=== PATIENT | female | born 1940 | race Caucasian/White ===

== ENCOUNTER 2020-08-07 20:57 | Emergency (ER) | payer MEDICARE, OTHER ==
[~2020-08-07 20:57] MED LIST: ACETAMINOPHEN325 MG PO; ACETAMINOPHEN500 MG PO; ADVAIR 250-501 EACH INH; ALBUTEROL0.63 MG/3 INH; ALLOPURINOL100 MG PO; AMOX TR-K CLV1 EAC3 PO; ARTIFICIAL TEAR15 M2 OU; ATIVAN 1MG TABLE1 MG PO; ATIVAN0.5 MG PO; ATORVASTATIN CA80 MG PO; BACTRIM DS TAB1 EACH PO; BACTROBAN OINT22 GM TOP; BISCOLAX10 MG PR; BREO ELLIPTA 11 EACH INH; BROVANA15 MCG/2 M INH; CEFUROXIME500 MG PO; CEPHALEXIN500 MG PO; CETAPHIL CREAM454 GM TOP; CETAPHIL CREAM454 GM TP; CIPRO500 MG PO; CLARITIN10 MG PO; COLACE100 MG PO; COLCHICINE0.6 M1 PO; CYANOCOBAL1000 MCG/1 INJ; CYMBALTA 30 MG30 MG PO; CYMBALTA30 MG PO; CYMBALTA60 MG PO; DAILY VITE1 EACH PO; DIPHENHYDRAMINE25 M1 PO; DULCOLAX10 MG PR; DULERA 100 MCG8.8 GM INH; ELIQUIS 5 MG TAB5 MG PO; EMLA 30 GRAM TUB1 EA TOP; EUCRISA TOP; FLONASE 0.05% N16 GM; FOLIC ACID1 MG PO; HUMALOG 10100 UNITS/ SC; HYDROCORTISONE TOP; HYDROCORTISONE28 GM TP; HYDROXYCHLOROQ200 MG PO; INVANZ 1 GM VIAL1 GM IV; IPRAT-ALBUT 0.5-3 ML INH; LEVAQUIN750 MG PO; LEVEMIR 10100 UNITS/ SQ; LEVEMIR SC; LEVEMIR100 UNIT/1 SC; LEVOTHYROXINE137 MCG PO; LIDOCAINE-PRILO30 GM TOP; LIPITOR20 MG PO; LISINOPRIL5 MG PO; LORAZEPAM0.5 MG PO; LYRICA75 MG PO; MEDROL DOSEPAK 24 MG PO; MELATONIN3 MG PO; METOPROLOL SUCC25 MG PO; METOPROLOL SUCC50 MG PO; MILK OF MA400 MG/5 M PO; MILK OF MAGNESI30 ML PO; MIRALAX17 GM PO; MONTELUKAST SOD10 MG PO; MS CONTIN30 MG PO; MULTI-VITAMIN1 EACH PO; MYCOSTATIN POWD15 GM TOP; MYCOSTATIN100000 UTS PO; MYRBETRIQ50 MG PO; NEURONTIN 300300 MG PO; NEURONTIN300 MG PO; OMNICEF 300 MG300 MG PO; PERCOCET 10-321 EACH PO; PERCOCET 7.5-31 EACH PO; PREDNISONE 20 M20 MG PO; PROAIR HFA8.5 GM INH; PROTONIX40 MG PO; PROVENTIL HFA 61 INH INH; PROZAC20 MG PO; PULMICORT0.5 MG/21 INH; PYRIDIUM200 MG PO; REGLAN5 MG PO; REMEDY CALAZIM113 G1 TP; REQUIP3 MG PO; RESTASIS 0.05%1 EACH OU; ROBITUSSIN DM UD5 ML PO; ROPINIROLE HCL2 MG PO; SANTYL OINT 3030 GM TP; SENNA8.6 MG PO; STOOL SOFTENER250 MG PO; SYNTHROID112 MCG PO; SYNTHROID125 MCG PO; TAMIFLU75 MG PO; TOPROL XL25 MG PO; TORSEMIDE20 MG PO; TROSPIUM CHLORI60 MG PO; VANCOCIN HCL125 MG PO; VANCOMYCIN750 MG/150 IV; VISTARIL25 MG PO; VITAMIN B-121000 MCG IM; VITAMIN D32000 UNI1 PO; XOPENEX HFA15 GM INH; ZANTAC 150 MG150 MG PO; ZANTAC150 MG PO; ZOFRAN ODT 4 MG4 MG PO; ZOFRAN4 MG PO; ZYVOX600 MG PO; [UNRECOGNIZED DRUG - OTHER] TP
[2020-08-07 22:41] LABS: HEMOGLOBIN 10.3 gm/dl (12.3-15.3); RED BLOOD COUNT 3.08 M/UL (4.00-5.10); WHITE BLOOD COUNT 3.8 K/UL (4.5-11.0)
[2020-08-07] MEDS ORDERED: [UNRECOGNIZED DRUG - REMARK] (23:07)
[2020-11-18] MEDS ORDERED: LYRICA75 MG PO (12:14)
[2020-11-26] MEDS ORDERED: PERCOCET 10-321 EACH PO (12:17)
[2020-12-08] MEDS ORDERED: DIABETIC TUSSI118 ML PO (12:01)
[2020-12-15] MEDS ORDERED: DIFLUCAN100 MG PO (12:02)
[2020-12-15] MEDS ORDERED: LASIX20 MG PO (12:10)
[2020-12-19] MEDS ORDERED: ACETAZOLAMIDE250 MG PO (09:19)
[2020-12-19] MEDS ORDERED: BUDESONIDE0.5 MG/2 M NEB (09:19)
[2020-12-19] MEDS ORDERED: FERROUS SULFAT325 M2 PO (09:34)
[2020-12-19] MEDS ORDERED: PERCOCET 10-321 EACH PO (09:37)
== END 2020-08-08 01:15 | disposition home or self-care (01) ==
LOC: ER1 20:57
PROVIDERS: Family Medicine
DX: R09.89 Other specified symptoms and signs involving the circulatory and respiratory systems (principal); E87.5 Hyperkalemia; I13.0 Hypertensive heart and chronic kidney disease with heart failure and stage 1 through stage 4 chronic kidney disease, or unspecified chronic kidney disease; N18.9 Chronic kidney disease, unspecified; I50.9 Heart failure, unspecified; Z88.1 Allergy status to other antibiotic agents; Z88.5 Allergy status to narcotic agent; Z88.8 Allergy status to other drugs, medicaments and biological substances
CPT/HCPCS: 70490; 80053; 85025; 99284

== ENCOUNTER 2020-08-20 23:24 | Inpatient (IN) | payer MEDICARE, OTHER ==
[~2020-08-20] VITALS: Ht 175.3 cm; Wt 152.0 kg
[~2020-08-20 23:24] MED LIST changes: +[UNRECOGNIZED DRUG - REMARK]
[2020-08-21 00:15] LABS: HEMOGLOBIN 12.8 gm/dl (12.3-15.3); RED BLOOD COUNT 3.77 M/UL (4.00-5.10); WHITE BLOOD COUNT 8.8 K/UL (4.5-11.0)
[2020-08-21] MEDS ORDERED: LIPITOR TAB 2020 MG PO (12:40)
[2020-08-21] MEDS ORDERED: NASAL RELIEF30 ML (12:46)
[2020-08-21] MEDS ORDERED: IRON325 M1 PO (12:48)
[2020-08-21] MEDS ORDERED: ATIVAN0.5 MG PO (12:52)
[2020-08-21] MEDS ORDERED: LYRICA75 MG PO (12:53)
[2020-08-21] MEDS ORDERED: PROTONIX40 MG PO (13:02)
[2020-08-21] MEDS ORDERED: TRELEGY ELLIPT1 EACH INH (13:06)
[2020-08-22 04:44] LABS: WHITE BLOOD COUNT 6.6 K/UL (4.5-11.0)
[2020-08-22 05:12] LABS: HEMOGLOBIN 10.1 gm/dl (12.3-15.3); RED BLOOD COUNT 2.98 M/UL (4.00-5.10)
[2020-08-25] MEDS ORDERED: DITROPAN XL 5 MG5 MG PO (12:04)
[2020-08-25] MEDS ORDERED: PERCOCET 10-321 EACH PO (12:45)
[2020-08-25] MEDS ORDERED: INVANZ 1 GM VIAL1 GM IV (12:47)
--- NOTE | 2020-08-25 13:45 | NUR ---
CALLED EMS AND [facility], GAVE REPORT TO KOREY AT THIS TIME , PT WILL BE GOING WITH IV LEFT IN PLACE FOR 3 MORE DAYS OF ANTIBIOTICS
[2020-11-18] MEDS ORDERED: LYRICA75 MG PO (12:14)
[2020-11-26] MEDS ORDERED: PERCOCET 10-321 EACH PO (12:17)
[2020-12-08] MEDS ORDERED: DIABETIC TUSSI118 ML PO (12:01)
[2020-12-15] MEDS ORDERED: DIFLUCAN100 MG PO (12:02)
[2020-12-15] MEDS ORDERED: LASIX20 MG PO (12:10)
[2020-12-19] MEDS ORDERED: ACETAZOLAMIDE250 MG PO (09:19)
[2020-12-19] MEDS ORDERED: BUDESONIDE0.5 MG/2 M NEB (09:19)
[2020-12-19] MEDS ORDERED: FERROUS SULFAT325 M2 PO (09:34)
[2020-12-19] MEDS ORDERED: PERCOCET 10-321 EACH PO (09:37)
== END 2020-08-25 14:50 | DRG 682 ==
LOC: ER1 23:24 → MED SURG 4 08-21 04:15 → CDU 08-21 04:15 → MED SURG 4 08-21 05:14
PROVIDERS: Internal Medicine; Physician Assistant; Physician Assistant Medical; ADMIT Internal Medicine
DX: N17.9 Acute kidney failure, unspecified (principal); G93.41 Metabolic encephalopathy; J69.0 Pneumonitis due to inhalation of food and vomit; N30.00 Acute cystitis without hematuria; E66.2 Morbid (severe) obesity with alveolar hypoventilation; I13.0 Hypertensive heart and chronic kidney disease with heart failure and stage 1 through stage 4 chronic kidney disease, or unspecified chronic kidney disease; I50.32 Chronic diastolic (congestive) heart failure; I48.20 Chronic atrial fibrillation, unspecified; F11.20 Opioid dependence, uncomplicated; Z68.42 Body mass index [BMI] 45.0-49.9, adult; E78.5 Hyperlipidemia, unspecified; I27.20 Pulmonary hypertension, unspecified; Z20.822 Contact with and (suspected) exposure to COVID-19; B96.20 Unspecified Escherichia coli [E. coli] as the cause of diseases classified elsewhere; M10.9 Gout, unspecified; E03.9 Hypothyroidism, unspecified; K74.60 Unspecified cirrhosis of liver; N39.46 Mixed incontinence; E11.22 Type 2 diabetes mellitus with diabetic chronic kidney disease; E87.5 Hyperkalemia; N18.30 Chronic kidney disease, stage 3 unspecified; Z86.16 Personal history of COVID-19; I87.8 Other specified disorders of veins; M06.9 Rheumatoid arthritis, unspecified; F41.9 Anxiety disorder, unspecified; Z96.652 Presence of left artificial knee joint; Z74.01 Bed confinement status; Z79.01 Long term (current) use of anticoagulants; Z79.82 Long term (current) use of aspirin; Z79.899 Other long term (current) drug therapy; Z90.710 Acquired absence of both cervix and uterus; Z87.891 Personal history of nicotine dependence; Z88.1 Allergy status to other antibiotic agents; Z88.5 Allergy status to narcotic agent; Z88.8 Allergy status to other drugs, medicaments and biological substances; Z82.3 Family history of stroke; Z80.2 Family history of malignant neoplasm of other respiratory and intrathoracic organs; Z28.21 Immunization not carried out because of patient refusal
CPT/HCPCS: 36415; 36600; 70450; 71045; 80048; 80053; 81001; 82550; 82553; 82803; 82962; 83605; 83735; 83874; 83880; 84100; 84484; 85025; 85027; 85610; 85652; 85730; 86140; 87040; 87077; 87086; 87186; 92507; 92526; 92610; 93005; 94640; 94664; 94760; 96365; 96375; 99285; J0610; J0696; J1335; J7030; U0002

== ENCOUNTER 2020-09-07 13:45 | Inpatient (IN) | payer MEDICARE, OTHER ==
[~2020-09-07] VITALS: Ht 172.7 cm; Wt 147.9 kg
[~2020-09-07 13:45] MED LIST changes: +DITROPAN XL 5 MG5 MG PO; +IRON325 M1 PO; +LIPITOR TAB 2020 MG PO; +NASAL RELIEF30 ML; +TRELEGY ELLIPT1 EACH INH
[2020-09-07 15:37] LABS: RED BLOOD COUNT 2.66 M/UL (4.00-5.10); WHITE BLOOD COUNT 4.3 K/UL (4.5-11.0)
[2020-09-08 04:41] LABS: HEMOGLOBIN 8.4 gm/dl (12.3-15.3); RED BLOOD COUNT 2.5 M/UL (4.00-5.10); WHITE BLOOD COUNT 3.6 K/UL (4.5-11.0)
[2020-09-08] MEDS ORDERED: ASPIRIN CHEWABL81 MG PO (09:41)
[2020-09-08] MEDS ORDERED: CYMBALTA30 MG PO (12:43)
[2020-09-08] MEDS ORDERED: ATIVAN0.5 MG PO (12:44)
[2020-09-08] MEDS ORDERED: NOVOLOG 10100 UNITS/ SC (12:57)
[2020-09-08] MEDS ORDERED: PERCOCET 10-321 EACH PO (13:00)
[2020-09-08] MEDS ORDERED: MIRALAX17 GM PO (13:07)
[2020-09-08] MEDS ORDERED: ACETAMINOPHEN325 MG PO (13:07)
[2020-09-08] MEDS ORDERED: VITAMIN C 500500 MG PO (13:08)
[2020-09-08] MEDS ORDERED: VOLTAREN100 GM TP ×2 (13:10→14:47)
[2020-09-08] MEDS ORDERED: SENNA-S 8.6-501 EACH PO (13:12)
[2020-09-08] MEDS ORDERED: DULCOLAX5 MG PO (14:21)
[2020-09-08] MEDS ORDERED: MYCOSTATIN100000 UTS PO (14:35)
[2020-09-08] MEDS ORDERED: XOPENEX HFA15 GM INH (14:57)
[2020-09-08] MEDS ORDERED: BENADRYL ITCH28.3 G1 TOP (22:13)
[2020-09-08] MEDS ORDERED: XALATAN OP SOL2.5 ML EYEBOTH (22:22)
[2020-09-09 06:18] LABS: HEMOGLOBIN 7.4 gm/dl (12.3-15.3); WHITE BLOOD COUNT 3.6 K/UL (4.5-11.0)
[2020-09-09 06:23] LABS: RED BLOOD COUNT 2.22 M/UL (4.00-5.10)
[2020-09-11 05:12] LABS: HEMOGLOBIN 8.2 gm/dl (12.3-15.3); RED BLOOD COUNT 2.43 M/UL (4.00-5.10); WHITE BLOOD COUNT 4.4 K/UL (4.5-11.0)
--- NOTE | 2020-09-12 02:52 | NUR ---
AFTER PRN DOSE OF DUCOLAX TABS AND DULCOLAX SUPPOSITORY, PATIENT HAD A MEDIUM TO LARGE SOFT BM. PATIENT STATES RELIEF.
[2020-09-12 05:13] LABS: HEMOGLOBIN 8.2 gm/dl (12.3-15.3); RED BLOOD COUNT 2.47 M/UL (4.00-5.10); WHITE BLOOD COUNT 3.8 K/UL (4.5-11.0)
[2020-09-13 03:31] LABS: HEMOGLOBIN 8.5 gm/dl (12.3-15.3); RED BLOOD COUNT 2.56 M/UL (4.00-5.10); WHITE BLOOD COUNT 4.5 K/UL (4.5-11.0)
[2020-09-13] MEDS ORDERED: ZYVOX600 MG PO (12:53)
--- NOTE | 2020-09-13 19:08 | NUR ---
SEVERAL ATTEMPS WERE MADE TO CALL [facility] TO GIVE REPORT WITH NO SUCCESS. AWAITING EMS FOR TRANSPORT TO [facility].
[2020-11-18] MEDS ORDERED: LYRICA75 MG PO (12:14)
[2020-11-26] MEDS ORDERED: PERCOCET 10-321 EACH PO (12:17)
[2020-12-08] MEDS ORDERED: DIABETIC TUSSI118 ML PO (12:01)
[2020-12-15] MEDS ORDERED: DIFLUCAN100 MG PO (12:02)
[2020-12-15] MEDS ORDERED: LASIX20 MG PO (12:10)
[2020-12-19] MEDS ORDERED: BUDESONIDE0.5 MG/2 M NEB (09:19)
[2020-12-19] MEDS ORDERED: ACETAZOLAMIDE250 MG PO (09:19)
[2020-12-19] MEDS ORDERED: FERROUS SULFAT325 M2 PO (09:34)
[2020-12-19] MEDS ORDERED: PERCOCET 10-321 EACH PO (09:37)
== END 2020-09-13 20:19 | DRG 682 ==
LOC: ER1 13:45 → CDU 18:21 → MED SURG 4 18:21
PROVIDERS: Emergency Medicine; Hospitalist; ADMIT Internal Medicine
DX: N17.9 Acute kidney failure, unspecified (principal); G93.41 Metabolic encephalopathy; N39.0 Urinary tract infection, site not specified; J96.11 Chronic respiratory failure with hypoxia; I50.32 Chronic diastolic (congestive) heart failure; Z16.24 Resistance to multiple antibiotics; I13.0 Hypertensive heart and chronic kidney disease with heart failure and stage 1 through stage 4 chronic kidney disease, or unspecified chronic kidney disease; J44.1 Chronic obstructive pulmonary disease with (acute) exacerbation; Z68.43 Body mass index [BMI] 50.0-59.9, adult; I48.20 Chronic atrial fibrillation, unspecified; Z20.822 Contact with and (suspected) exposure to COVID-19; B95.2 Enterococcus as the cause of diseases classified elsewhere; R53.81 Other malaise; M10.9 Gout, unspecified; F32.9 Major depressive disorder, single episode, unspecified; E03.9 Hypothyroidism, unspecified; G25.81 Restless legs syndrome; M79.661 Pain in right lower leg; N18.30 Chronic kidney disease, stage 3 unspecified; E86.0 Dehydration; K59.09 Other constipation; E87.5 Hyperkalemia; E83.51 Hypocalcemia; E66.01 Morbid (severe) obesity due to excess calories; E11.40 Type 2 diabetes mellitus with diabetic neuropathy, unspecified; I71.2 Thoracic aortic aneurysm, without rupture; H40.10X0 Unspecified open-angle glaucoma, stage unspecified; E53.8 Deficiency of other specified B group vitamins; F41.1 Generalized anxiety disorder; E78.5 Hyperlipidemia, unspecified; K21.9 Gastro-esophageal reflux disease without esophagitis; L89.322 Pressure ulcer of left buttock, stage 2; I25.10 Atherosclerotic heart disease of native coronary artery without angina pectoris; I87.2 Venous insufficiency (chronic) (peripheral); E11.22 Type 2 diabetes mellitus with diabetic chronic kidney disease; Z96.653 Presence of artificial knee joint, bilateral; Z99.81 Dependence on supplemental oxygen; Z88.1 Allergy status to other antibiotic agents; Z88.5 Allergy status to narcotic agent; Z88.8 Allergy status to other drugs, medicaments and biological substances; Z79.82 Long term (current) use of aspirin; Z79.890 Hormone replacement therapy; Z86.16 Personal history of COVID-19; Z79.4 Long term (current) use of insulin; Z79.01 Long term (current) use of anticoagulants; Z79.899 Other long term (current) drug therapy
CPT/HCPCS: 0240U; 36415; 70450; 71045; 80048; 80053; 81001; 82607; 82746; 82962; 83605; 83735; 84100; 84132; 85025; 85027; 85610; 87040; 87077; 87086; 87186; 92610; 93005; 93971; 94640; 94760; 96365; 96366; 96367; 96368; 96372; 96376; 99285; J0610; J0696; J2020; J2405; J2920; J7030; J7040; P9047; U0002

== ENCOUNTER 2020-10-02 22:03 | Inpatient (IN) | payer MEDICARE, OTHER ==
[~2020-10-02] VITALS: Ht 167.6 cm; Wt 147.4 kg
[~2020-10-02 22:03] MED LIST changes: +ASPIRIN CHEWABL81 MG PO; +BENADRYL ITCH28.3 G1 TOP; +DULCOLAX5 MG PO; +NOVOLOG 10100 UNITS/ SC; +SENNA-S 8.6-501 EACH PO; +VITAMIN C 500500 MG PO; +VOLTAREN100 GM TP; +XALATAN OP SOL2.5 ML EYEBOTH
[2020-10-02 22:57] LABS: HEMOGLOBIN 11.9 gm/dl (12.3-15.3); RED BLOOD COUNT 3.6 M/UL (4.00-5.10); WHITE BLOOD COUNT 8.3 K/UL (4.5-11.0)
[2020-10-04 05:03] LABS: HEMOGLOBIN 10.5 gm/dl (12.3-15.3)
[2020-10-04 05:04] LABS: RED BLOOD COUNT 3.16 M/UL (4.00-5.10); WHITE BLOOD COUNT 5.9 K/UL (4.5-11.0)
--- NOTE | 2020-10-07 12:57 | NUR ---
10/07/20 0930 TOLERATING CLEAR LIQUIDS WELL
[2020-10-08] MEDS ORDERED: PERCOCET 10-321 EACH PO (15:19)
[2020-10-08] MEDS ORDERED: ATIVAN0.5 MG PO (15:19)
[2020-10-08] MEDS ORDERED: IRON325 M1 PO (15:19)
[2020-10-08] MEDS ORDERED: LEVOFLOXACIN750 MG PO (15:42)
[2020-10-08] MEDS ORDERED: INVANZ 1 GM VIAL1 GM IM (17:42)
--- NOTE | 2020-10-08 17:47 | NUR ---
10/08/201739 PATIENT ALLERGIC TO [facility] STEVNESON NOTIFIED, EARNEST PARKS RN AT [facility] STATED IT WAS OK THAT THEY COULD DO THE IV FOR FIVE DAYS
[2020-11-18] MEDS ORDERED: LYRICA75 MG PO (12:14)
[2020-11-26] MEDS ORDERED: PERCOCET 10-321 EACH PO (12:17)
[2020-12-08] MEDS ORDERED: DIABETIC TUSSI118 ML PO (12:01)
[2020-12-15] MEDS ORDERED: DIFLUCAN100 MG PO (12:02)
[2020-12-15] MEDS ORDERED: LASIX20 MG PO (12:10)
[2020-12-19] MEDS ORDERED: ACETAZOLAMIDE250 MG PO (09:19)
[2020-12-19] MEDS ORDERED: BUDESONIDE0.5 MG/2 M NEB (09:19)
[2020-12-19] MEDS ORDERED: FERROUS SULFAT325 M2 PO (09:34)
[2020-12-19] MEDS ORDERED: PERCOCET 10-321 EACH PO (09:37)
== END 2020-10-08 18:29 | DRG 388 ==
LOC: ER1 22:03 → CDU 10-03 01:00 → MED SURG 4 10-03 01:00
PROVIDERS: Family Medicine; Internal Medicine; ADMIT Internal Medicine
DX: K56.609 Unspecified intestinal obstruction, unspecified as to partial versus complete obstruction (principal); G93.41 Metabolic encephalopathy; Z68.43 Body mass index [BMI] 50.0-59.9, adult; J96.11 Chronic respiratory failure with hypoxia; N17.9 Acute kidney failure, unspecified; I50.32 Chronic diastolic (congestive) heart failure; E66.2 Morbid (severe) obesity with alveolar hypoventilation; I13.0 Hypertensive heart and chronic kidney disease with heart failure and stage 1 through stage 4 chronic kidney disease, or unspecified chronic kidney disease; N30.01 Acute cystitis with hematuria; B96.5 Pseudomonas (aeruginosa) (mallei) (pseudomallei) as the cause of diseases classified elsewhere; I25.10 Atherosclerotic heart disease of native coronary artery without angina pectoris; J44.9 Chronic obstructive pulmonary disease, unspecified; Z20.822 Contact with and (suspected) exposure to COVID-19; E11.22 Type 2 diabetes mellitus with diabetic chronic kidney disease; N18.30 Chronic kidney disease, stage 3 unspecified; M10.9 Gout, unspecified; F41.9 Anxiety disorder, unspecified; F32.9 Major depressive disorder, single episode, unspecified; I48.91 Unspecified atrial fibrillation; M06.9 Rheumatoid arthritis, unspecified; E03.9 Hypothyroidism, unspecified; I27.20 Pulmonary hypertension, unspecified; G89.4 Chronic pain syndrome; E78.5 Hyperlipidemia, unspecified; Z96.653 Presence of artificial knee joint, bilateral; K42.9 Umbilical hernia without obstruction or gangrene; K57.90 Diverticulosis of intestine, part unspecified, without perforation or abscess without bleeding; E87.5 Hyperkalemia; E86.0 Dehydration; K74.60 Unspecified cirrhosis of liver; R80.9 Proteinuria, unspecified; D75.89 Other specified diseases of blood and blood-forming organs; I87.8 Other specified disorders of veins; Z90.710 Acquired absence of both cervix and uterus; Z74.01 Bed confinement status; Z79.4 Long term (current) use of insulin; Z98.890 Other specified postprocedural states; Z88.8 Allergy status to other drugs, medicaments and biological substances; Z87.891 Personal history of nicotine dependence
CPT/HCPCS: 0240U; 36415; 36600; 71250; 80048; 80053; 81001; 82803; 82962; 83605; 83690; 85025; 85610; 87040; 87077; 87086; 87186; 94640; 94664; 94760; 96374; 96375; 96376; 99285; C9113; J1335; J1650; J2185; J2270; J2405; J7030; J7040

== ENCOUNTER 2020-11-21 12:00 | Inpatient (IN) | payer MEDICARE, OTHER ==
[~2020-11-21] VITALS: Ht 177.8 cm; Wt 146.7 kg
[~2020-11-21 12:00] MED LIST changes: +INVANZ 1 GM VIAL1 GM IM; +LEVOFLOXACIN750 MG PO
[2020-11-21] MEDS ORDERED: CETAPHIL CREAM454 GM TOP (12:43)
[2020-11-21] MEDS ORDERED: IPRAT-ALBUT 0.5-3 ML INH (12:49)
[2020-11-21 13:18] LABS: HEMOGLOBIN 8.1 gm/dl (12.3-15.3); RED BLOOD COUNT 2.5 M/UL (4.00-5.10); WHITE BLOOD COUNT 4.6 K/UL (4.5-11.0)
[2020-11-21 13:53] LABS: BUN/CREATININE RATIO 24 (0-10)
[2020-11-21] MEDS ORDERED: VITAMIN D350 MC3 PO (16:35)
[2020-11-21] MEDS ORDERED: LAXATIVE SUPPOS10 MG PR (20:03)
[2020-11-21] MEDS ORDERED: [UNRECOGNIZED DRUG - OTHER] TOP (20:30)
[2020-11-21] MEDS ORDERED: CETAPHIL TOP (20:30)
[2020-11-22 00:56] LABS: HEMOGLOBIN 8.1 gm/dl (12.3-15.3); RED BLOOD COUNT 2.52 M/UL (4.00-5.10); WHITE BLOOD COUNT 5.3 K/UL (4.5-11.0)
[2020-11-22 02:02] LABS: BUN/CREATININE RATIO 26 (0-10)
[2020-11-23 08:04] LABS: RED BLOOD COUNT 2.55 M/UL (4.00-5.10); WHITE BLOOD COUNT 5.1 K/UL (4.5-11.0)
[2020-11-24 03:21] LABS: HEMOGLOBIN 7.9 gm/dl (12.3-15.3); RED BLOOD COUNT 2.46 M/UL (4.00-5.10); WHITE BLOOD COUNT 4.3 K/UL (4.5-11.0)
[2020-11-24] MEDS ORDERED: PERCOCET 10-321 EACH PO (10:57)
[2020-11-24] MEDS ORDERED: CEFUROXIME500 MG PO (10:57)
--- NOTE | 2020-11-24 15:21 | NUR ---
11/24/20 1520 [facility] EMS NOTIFIED OF NEED TO TAKE PATIENT BACK TO [facility]
[2020-11-26] MEDS ORDERED: PERCOCET 10-321 EACH PO (12:17)
[2020-12-08] MEDS ORDERED: DIABETIC TUSSI118 ML PO (12:01)
[2020-12-15] MEDS ORDERED: DIFLUCAN100 MG PO (12:02)
[2020-12-15] MEDS ORDERED: LASIX20 MG PO (12:10)
[2020-12-19] MEDS ORDERED: ACETAZOLAMIDE250 MG PO (09:19)
[2020-12-19] MEDS ORDERED: BUDESONIDE0.5 MG/2 M NEB (09:19)
[2020-12-19] MEDS ORDERED: FERROUS SULFAT325 M2 PO (09:34)
[2020-12-19] MEDS ORDERED: PERCOCET 10-321 EACH PO (09:37)
== END 2020-11-24 16:45 | DRG 682 ==
LOC: ER1 12:00 → PROG CARE 15:11 → CDU 15:11 → PROG CARE 19:45
PROVIDERS: Emergency Medicine; Physician Assistant; ADMIT Internal Medicine
PROC: 02HV33Z Insertion of Infusion Device into Superior Vena Cava, Percutaneous Approach (ICD-10-PCS; principal; 2020-11-21)
DX: N17.9 Acute kidney failure, unspecified (principal); J96.21 Acute and chronic respiratory failure with hypoxia; J96.22 Acute and chronic respiratory failure with hypercapnia; G93.49 Other encephalopathy; I48.20 Chronic atrial fibrillation, unspecified; I13.0 Hypertensive heart and chronic kidney disease with heart failure and stage 1 through stage 4 chronic kidney disease, or unspecified chronic kidney disease; I50.32 Chronic diastolic (congestive) heart failure; E66.2 Morbid (severe) obesity with alveolar hypoventilation; N30.00 Acute cystitis without hematuria; Z16.12 Extended spectrum beta lactamase (ESBL) resistance; B96.20 Unspecified Escherichia coli [E. coli] as the cause of diseases classified elsewhere; N18.30 Chronic kidney disease, stage 3 unspecified; E87.5 Hyperkalemia; E11.22 Type 2 diabetes mellitus with diabetic chronic kidney disease; E03.9 Hypothyroidism, unspecified; D53.9 Nutritional anemia, unspecified; Z96.653 Presence of artificial knee joint, bilateral; F32.9 Major depressive disorder, single episode, unspecified; Z20.822 Contact with and (suspected) exposure to COVID-19; I27.20 Pulmonary hypertension, unspecified; E78.5 Hyperlipidemia, unspecified; G89.4 Chronic pain syndrome; Z90.710 Acquired absence of both cervix and uterus; Z88.6 Allergy status to analgesic agent; Z88.8 Allergy status to other drugs, medicaments and biological substances; Z80.8 Family history of malignant neoplasm of other organs or systems; Z90.49 Acquired absence of other specified parts of digestive tract; Z82.3 Family history of stroke; Z79.4 Long term (current) use of insulin; Z88.1 Allergy status to other antibiotic agents; Z68.30 Body mass index [BMI] 30.0-30.9, adult
CPT/HCPCS: 0240U; 36415; 36556; 36600; 51702; 70450; 71045; 80048; 80053; 81001; 82550; 82553; 82803; 82962; 83605; 83690; 83880; 84132; 84484; 85025; 85610; 85730; 86850; 86900; 86901; 87040; 87077; 87086; 87186; 93005; 94640; 94660; 94664; 94760; 96374; 99285; J0696; J1335; J7030

== ENCOUNTER 2020-12-14 11:11 | Emergency (ER) | payer MEDICARE, OTHER ==
[~2020-12-14 11:11] MED LIST changes: +CETAPHIL TOP; +DIABETIC TUSSI118 ML PO; +LAXATIVE SUPPOS10 MG PR; +VITAMIN D350 MC3 PO; +[UNRECOGNIZED DRUG - OTHER] TOP
[2020-12-14 13:10] LABS: HEMOGLOBIN 7.6 gm/dl (12.3-15.3); RED BLOOD COUNT 2.37 M/UL (4.00-5.10)
[2020-12-14 13:40] LABS: BUN/CREATININE RATIO 17 (0-10)
[2020-12-14] MEDS ORDERED: OMNICEF 300 MG300 MG PO (16:41)
[2020-12-15] MEDS ORDERED: DIFLUCAN100 MG PO (12:02)
[2020-12-15] MEDS ORDERED: LASIX20 MG PO (12:10)
[2020-12-19] MEDS ORDERED: BUDESONIDE0.5 MG/2 M NEB (09:19)
[2020-12-19] MEDS ORDERED: ACETAZOLAMIDE250 MG PO (09:19)
[2020-12-19] MEDS ORDERED: FERROUS SULFAT325 M2 PO (09:34)
[2020-12-19] MEDS ORDERED: PERCOCET 10-321 EACH PO (09:37)
== END 2020-12-14 19:46 ==
LOC: ER1 11:11
PROVIDERS: Family Medicine
DX: J96.12 Chronic respiratory failure with hypercapnia (principal); N39.0 Urinary tract infection, site not specified; F41.9 Anxiety disorder, unspecified; I50.32 Chronic diastolic (congestive) heart failure; N18.9 Chronic kidney disease, unspecified; D63.1 Anemia in chronic kidney disease; E87.5 Hyperkalemia; E66.01 Morbid (severe) obesity due to excess calories; Z88.1 Allergy status to other antibiotic agents
CPT/HCPCS: 36600; 71045; 80053; 81001; 82550; 82553; 82803; 83605; 83874; 83880; 84484; 85025; 85610; 93005; 94664; 96365; 99285; J0696

== ENCOUNTER 2020-12-17 06:58 | Inpatient (IN) | payer MEDICARE, OTHER ==
[~2020-12-17] VITALS: Ht 157.5 cm; Wt 147.4 kg
[~2020-12-17 06:58] MED LIST changes: +DIFLUCAN100 MG PO; +LASIX20 MG PO
[2020-12-17 07:28] LABS: HEMOGLOBIN 8.1 gm/dl (12.3-15.3); RED BLOOD COUNT 2.55 M/UL (4.00-5.10); WHITE BLOOD COUNT 3.9 K/UL (4.5-11.0)
[2020-12-17 08:01] LABS: BUN/CREATININE RATIO 13 (0-10)
[2020-12-17] MEDS ORDERED: FERROUS SULFAT325 MG PO (12:08)
[2020-12-17] MEDS ORDERED: ESTRACE42.5 GM PV (20:49)
[2020-12-18 03:08] LABS: HEMOGLOBIN 7.9 gm/dl (12.3-15.3); RED BLOOD COUNT 2.46 M/UL (4.00-5.10); WHITE BLOOD COUNT 3.4 K/UL (4.5-11.0)
[2020-12-19 05:09] LABS: HEMOGLOBIN 7.6 gm/dl (12.3-15.3); RED BLOOD COUNT 2.34 M/UL (4.00-5.10); WHITE BLOOD COUNT 3.6 K/UL (4.5-11.0)
[2020-12-19] MEDS ORDERED: BUDESONIDE0.5 MG/2 M NEB (09:19)
[2020-12-19] MEDS ORDERED: ACETAZOLAMIDE250 MG PO (09:19)
[2020-12-19] MEDS ORDERED: FERROUS SULFAT325 M2 PO (09:34)
[2020-12-19] MEDS ORDERED: PERCOCET 10-321 EACH PO (09:37)
== END 2020-12-19 16:30 | DRG 291 ==
LOC: ER1 06:58 → PROG CARE 11:32 → CDU 11:32 → PROG CARE 13:06
PROVIDERS: Emergency Medicine; Physician Assistant Medical; ADMIT Internal Medicine
PROC: 5A09357 Assistance with Respiratory Ventilation, Less than 24 Consecutive Hours, Continuous Positive Airway Pressure (ICD-10-PCS; principal; 2020-12-17)
DX: I13.0 Hypertensive heart and chronic kidney disease with heart failure and stage 1 through stage 4 chronic kidney disease, or unspecified chronic kidney disease (principal); J96.21 Acute and chronic respiratory failure with hypoxia; R53.2 Functional quadriplegia; I50.33 Acute on chronic diastolic (congestive) heart failure; J96.22 Acute and chronic respiratory failure with hypercapnia; J98.11 Atelectasis; I48.20 Chronic atrial fibrillation, unspecified; N30.00 Acute cystitis without hematuria; E66.2 Morbid (severe) obesity with alveolar hypoventilation; Z68.43 Body mass index [BMI] 50.0-59.9, adult; Z20.822 Contact with and (suspected) exposure to COVID-19; I87.8 Other specified disorders of veins; I48.0 Paroxysmal atrial fibrillation; N18.30 Chronic kidney disease, stage 3 unspecified; E11.22 Type 2 diabetes mellitus with diabetic chronic kidney disease; D63.1 Anemia in chronic kidney disease; D50.9 Iron deficiency anemia, unspecified; E11.51 Type 2 diabetes mellitus with diabetic peripheral angiopathy without gangrene; Z96.653 Presence of artificial knee joint, bilateral; D69.6 Thrombocytopenia, unspecified; R32 Unspecified urinary incontinence; G89.4 Chronic pain syndrome; M06.9 Rheumatoid arthritis, unspecified; E78.00 Pure hypercholesterolemia, unspecified; E03.9 Hypothyroidism, unspecified; I27.20 Pulmonary hypertension, unspecified; E11.9 Type 2 diabetes mellitus without complications; Z87.440 Personal history of urinary (tract) infections; Z79.82 Long term (current) use of aspirin; Z79.01 Long term (current) use of anticoagulants; Z79.4 Long term (current) use of insulin; Z86.16 Personal history of COVID-19; Z90.49 Acquired absence of other specified parts of digestive tract; Z90.710 Acquired absence of both cervix and uterus; Z88.1 Allergy status to other antibiotic agents; Z88.5 Allergy status to narcotic agent; Z88.8 Allergy status to other drugs, medicaments and biological substances; Z74.01 Bed confinement status; Z87.891 Personal history of nicotine dependence; Z81.1 Family history of alcohol abuse and dependence; Z80.0 Family history of malignant neoplasm of digestive organs; Z82.3 Family history of stroke
CPT/HCPCS: 36415; 36600; 71045; 80048; 80053; 81001; 82550; 82553; 82803; 82962; 83540; 83550; 83605; 83735; 83874; 83880; 84132; 84439; 84443; 84484; 85025; 85027; 85610; 93005; 94640; 94660; 94664; 94760; 97161; 99285; J0696; J1120; J1205; J1335; U0002

== ENCOUNTER 2020-12-29 15:44 | Emergency (ER) | payer MEDICARE, OTHER ==
[~2020-12-29 15:44] MED LIST changes: +ACETAZOLAMIDE250 MG PO; +BUDESONIDE0.5 MG/2 M NEB; +ESTRACE42.5 GM PV; +FERROUS SULFAT325 M2 PO; +FERROUS SULFAT325 MG PO
[2020-12-29 16:56] LABS: HEMOGLOBIN 8.7 gm/dl (12.3-15.3); RED BLOOD COUNT 2.65 M/UL (4.00-5.10); WHITE BLOOD COUNT 5.9 K/UL (4.5-11.0)
[2020-12-29] MEDS ORDERED: OMNICEF 300 MG300 MG PO (19:12)
== END 2020-12-29 20:50 | disposition home or self-care (01) ==
LOC: ER1 15:44
PROVIDERS: Emergency Medicine
DX: N39.0 Urinary tract infection, site not specified (principal); I48.91 Unspecified atrial fibrillation; I11.0 Hypertensive heart disease with heart failure; I50.9 Heart failure, unspecified; E78.5 Hyperlipidemia, unspecified; Z20.822 Contact with and (suspected) exposure to COVID-19; E11.9 Type 2 diabetes mellitus without complications; Z90.710 Acquired absence of both cervix and uterus; Z88.1 Allergy status to other antibiotic agents; Z88.8 Allergy status to other drugs, medicaments and biological substances
CPT/HCPCS: 0240U; 51701; 71045; 80053; 81001; 82550; 82553; 83605; 83874; 83880; 84484; 85025; 85610; 85730; 87040; 87086; 93005; 96374; 99285; J0696

== ENCOUNTER 2021-01-31 10:54 | Emergency (ER) | payer MEDICARE, OTHER ==
[~2021-01-31 10:54] MED LIST changes: -LIPITOR TAB 2020 MG PO; -MELATONIN3 MG PO; -REQUIP3 MG PO; -VITAMIN D350 MC3 PO
== END 2021-01-31 14:04 | disposition home or self-care (01) ==
LOC: ER1 10:54
DX: L76.22 Postprocedural hemorrhage of skin and subcutaneous tissue following other procedure (principal); I48.91 Unspecified atrial fibrillation; I12.9 Hypertensive chronic kidney disease with stage 1 through stage 4 chronic kidney disease, or unspecified chronic kidney disease; E11.22 Type 2 diabetes mellitus with diabetic chronic kidney disease
CPT/HCPCS: 99283

== ENCOUNTER 2021-04-25 21:47 | Inpatient (IN) | payer MEDICARE, OTHER ==
[~2021-04-25] VITALS: Ht 172.7 cm; Wt 140.2 kg
[2021-04-26 00:14] LABS: HEMOGLOBIN 9.9 gm/dl (12.3-15.3); RED BLOOD COUNT 3.07 M/UL (4.00-5.10); WHITE BLOOD COUNT 5.7 K/UL (4.5-11.0)
[2021-04-26] MEDS ORDERED: LIPITOR TAB 2020 MG PO (12:40)
[2021-04-26] MEDS ORDERED: CYMBALTA20 MG PO (12:43)
[2021-04-26] MEDS ORDERED: ROPINIROLE HCL3 MG PO (13:11)
[2021-04-26] MEDS ORDERED: PROAIR DIGIHAL90 MCG INH (14:48)
[2021-04-26] MEDS ORDERED: [UNRECOGNIZED DRUG - OTHER] TOP (14:51)
[2021-04-26] MEDS ORDERED: BENADRYL ITCH28.3 G1 TOP (14:52)
[2021-04-26] MEDS ORDERED: BISACODYL10 MG PR (14:54)
[2021-04-26] MEDS ORDERED: HYDROCODON-ACE1 EAC4 PO (14:54)
[2021-04-26] MEDS ORDERED: XOPENEX HFA15 GM INH (14:56)
[2021-04-26] MEDS ORDERED: DULCOLAX400 MG/5 M PO (14:58)
[2021-04-26] MEDS ORDERED: MIRALAX17 GM PO (15:02)
[2021-04-26] MEDS ORDERED: MYCOSTATIN100000 UTS PO (15:03)
[2021-04-26] MEDS ORDERED: MELATONIN3 MG PO (16:11)
[2021-04-26] MEDS ORDERED: VITAMIN D350 MC3 PO (16:35)
[2021-04-28 06:23] LABS: HEMOGLOBIN 8.4 gm/dl (12.3-15.3)
[2021-04-28 06:24] LABS: RED BLOOD COUNT 2.64 M/UL (4.00-5.10); WHITE BLOOD COUNT 2.7 K/UL (4.5-11.0)
[2021-04-29 06:29] LABS: RED BLOOD COUNT 2.79 M/UL (4.00-5.10)
[2021-04-29 06:30] LABS: WHITE BLOOD COUNT 3.9 K/UL (4.5-11.0)
[2021-04-30 05:59] LABS: HEMOGLOBIN 9.3 gm/dl (12.3-15.3); RED BLOOD COUNT 2.95 M/UL (4.00-5.10); WHITE BLOOD COUNT 4.3 K/UL (4.5-11.0)
[2021-04-30] MEDS ORDERED: OMNICEF 300 MG300 MG PO (14:25)
[2021-04-30] MEDS ORDERED: LYRICA75 MG PO (16:39)
[2021-04-30] MEDS ORDERED: HYDROCODON-ACE1 EAC4 PO (16:39)
[2021-04-30] MEDS ORDERED: LASIX TAB 20 MG20 MG PO (16:39)
== END 2021-04-30 18:00 | disposition short-term general hospital (02) | DRG 189 ==
LOC: ER1 21:47 → CDU 04-26 02:05 → MED SURG 4 04-26 02:05
PROVIDERS: Family Medicine; Internal Medicine; ADMIT Internal Medicine
PROC: 5A09357 Assistance with Respiratory Ventilation, Less than 24 Consecutive Hours, Continuous Positive Airway Pressure (ICD-10-PCS; 2021-04-26)
PROC: B24BZZ4 Ultrasonography of Heart with Aorta, Transesophageal (ICD-10-PCS; principal; 2021-04-27)
DX: J96.22 Acute and chronic respiratory failure with hypercapnia (principal); I50.33 Acute on chronic diastolic (congestive) heart failure; Z20.822 Contact with and (suspected) exposure to COVID-19; I21.A1 Myocardial infarction type 2; N30.00 Acute cystitis without hematuria; N17.9 Acute kidney failure, unspecified; J44.1 Chronic obstructive pulmonary disease with (acute) exacerbation; I50.32 Chronic diastolic (congestive) heart failure; I48.20 Chronic atrial fibrillation, unspecified; E66.2 Morbid (severe) obesity with alveolar hypoventilation; I13.0 Hypertensive heart and chronic kidney disease with heart failure and stage 1 through stage 4 chronic kidney disease, or unspecified chronic kidney disease; N18.4 Chronic kidney disease, stage 4 (severe); Z68.42 Body mass index [BMI] 45.0-49.9, adult; I87.8 Other specified disorders of veins; I27.20 Pulmonary hypertension, unspecified; E03.9 Hypothyroidism, unspecified; E87.6 Hypokalemia; K59.00 Constipation, unspecified; E11.22 Type 2 diabetes mellitus with diabetic chronic kidney disease; Z96.653 Presence of artificial knee joint, bilateral; G89.4 Chronic pain syndrome; M10.9 Gout, unspecified; E78.5 Hyperlipidemia, unspecified; Z91.14 Patient's other noncompliance with medication regimen; Z74.01 Bed confinement status; Z79.01 Long term (current) use of anticoagulants; Z86.16 Personal history of COVID-19; Z87.440 Personal history of urinary (tract) infections; Z90.49 Acquired absence of other specified parts of digestive tract; Z79.82 Long term (current) use of aspirin; Z79.899 Other long term (current) drug therapy; Z87.01 Personal history of pneumonia (recurrent); Z90.710 Acquired absence of both cervix and uterus; Z96.82 Presence of neurostimulator; Z80.0 Family history of malignant neoplasm of digestive organs; Z82.3 Family history of stroke
CPT/HCPCS: ECHO; 36415; 36600; 70450; 71045; 80048; 80053; 80307; 81001; 82140; 82550; 82553; 82565; 82803; 82962; 83036; 83605; 83874; 84484; 85025; 85027; 86140; 87077; 87086; 87186; 93005; 93306; 93926; 94640; 94660; 94664; 94760; 97162; 99285; J0696; J1940; J2920; J7030; U0002

== ENCOUNTER 2021-09-26 09:06 | Inpatient (IN) | payer MEDICARE, OTHER ==
[~2021-09-26] VITALS: Ht 177.8 cm; Wt 141.0 kg
[~2021-09-26 09:06] MED LIST changes: +BISACODYL10 MG PR; +DULCOLAX400 MG/5 M PO; +HYDROCODON-ACE1 EAC4 PO; +LASIX TAB 20 MG20 MG PO; +LIPITOR TAB 2020 MG PO; +MELATONIN3 MG PO; +ROPINIROLE HCL4 MG PO; +VITAMIN D350 MC3 PO; +[UNRECOGNIZED DRUG - OTHER] TOP
[2021-09-26 10:06] LABS: HEMOGLOBIN 10.8 gm/dl (12.3-15.3); RED BLOOD COUNT 3.42 M/UL (4.00-5.10); WHITE BLOOD COUNT 9.3 K/UL (4.5-11.0)
[2021-09-26] MEDS ORDERED: HYDROCODON-ACE1 EAC4 PO (12:58)
[2021-09-26] MEDS ORDERED: OXYBUTYNIN CHLOR5 MG PO (12:59)
[2021-09-26] MEDS ORDERED: LYRICA75 MG PO (13:00)
[2021-09-26] MEDS ORDERED: ZINC OXIDE57 GM TOP (13:01)
[2021-09-26] MEDS ORDERED: FLONASE 0.05% N16 GM (13:02)
[2021-09-26] MEDS ORDERED: OMEPRAZOLE20 MG PO (13:02)
[2021-09-26] MEDS ORDERED: QUETIAPINE FUMA50 MG PO (13:02)
[2021-09-26] MEDS ORDERED: VOLTAREN ARTHRI20 GM TOP (13:03)
[2021-09-27 03:49] LABS: HEMOGLOBIN 9.2 gm/dl (12.3-15.3); WHITE BLOOD COUNT 7.4 K/UL (4.5-11.0)
[2021-09-27 04:01] LABS: RED BLOOD COUNT 2.95 M/UL (4.00-5.10)
[2021-09-28 03:02] LABS: HEMOGLOBIN 10.2 gm/dl (12.3-15.3); RED BLOOD COUNT 3.23 M/UL (4.00-5.10); WHITE BLOOD COUNT 7.4 K/UL (4.5-11.0)
[2021-09-28] MEDS ORDERED: ROCEPHIN 1 GM AD1 GM IV (12:11)
--- NOTE | 2021-09-28 14:27 | NUR ---
CALLED EMS [facility] AND THEY STATES WILL BE HERE IN HOUR OR SO TO LEAD DATA ARCHITECT PATIENT
== END 2021-09-28 18:00 | DRG 690 ==
LOC: ER1 09:06 → CDU 12:26 → M/S 12:58
PROVIDERS: Physician Assistant; ADMIT Internal Medicine
DX: N39.0 Urinary tract infection, site not specified (principal); Z16.21 Resistance to vancomycin; Z16.12 Extended spectrum beta lactamase (ESBL) resistance; Z20.822 Contact with and (suspected) exposure to COVID-19; I50.32 Chronic diastolic (congestive) heart failure; I48.20 Chronic atrial fibrillation, unspecified; I13.0 Hypertensive heart and chronic kidney disease with heart failure and stage 1 through stage 4 chronic kidney disease, or unspecified chronic kidney disease; Z68.41 Body mass index [BMI] 40.0-44.9, adult; B96.20 Unspecified Escherichia coli [E. coli] as the cause of diseases classified elsewhere; D63.1 Anemia in chronic kidney disease; I87.8 Other specified disorders of veins; G89.4 Chronic pain syndrome; E03.9 Hypothyroidism, unspecified; E78.5 Hyperlipidemia, unspecified; Z96.651 Presence of right artificial knee joint; Z96.653 Presence of artificial knee joint, bilateral; K42.9 Umbilical hernia without obstruction or gangrene; M10.9 Gout, unspecified; N18.30 Chronic kidney disease, stage 3 unspecified; E66.01 Morbid (severe) obesity due to excess calories; E11.22 Type 2 diabetes mellitus with diabetic chronic kidney disease; M06.9 Rheumatoid arthritis, unspecified; Z87.440 Personal history of urinary (tract) infections; Z79.4 Long term (current) use of insulin; Z87.19 Personal history of other diseases of the digestive system; Z79.01 Long term (current) use of anticoagulants; Z79.82 Long term (current) use of aspirin; Z90.710 Acquired absence of both cervix and uterus; Z98.890 Other specified postprocedural states; Z90.49 Acquired absence of other specified parts of digestive tract; Z88.5 Allergy status to narcotic agent; Z88.1 Allergy status to other antibiotic agents; Z88.6 Allergy status to analgesic agent; Z88.8 Allergy status to other drugs, medicaments and biological substances; Z74.01 Bed confinement status; Z87.891 Personal history of nicotine dependence; Z80.0 Family history of malignant neoplasm of digestive organs
CPT/HCPCS: 0240U; 36415; 51701; 80048; 80053; 81001; 82962; 83605; 83690; 85025; 87040; 87077; 87086; 87186; 94760; 96374; 96375; 99285; J0696; J1335; J2405

== ENCOUNTER 2021-10-02 22:35 | Inpatient (IN) | payer MEDICARE, OTHER ==
[~2021-10-02] VITALS: Ht 170.2 cm; Wt 142.9 kg
[~2021-10-02 22:35] MED LIST changes: +OMEPRAZOLE20 MG PO; +OXYBUTYNIN CHLOR5 MG PO; +QUETIAPINE FUMA50 MG PO; +ROCEPHIN 1 GM AD1 GM IV; +ZINC OXIDE57 GM TOP
[2021-10-02 23:37] LABS: HEMOGLOBIN 9.5 gm/dl (12.3-15.3); RED BLOOD COUNT 3.08 M/UL (4.00-5.10); WHITE BLOOD COUNT 5.7 K/UL (4.5-11.0)
[2021-10-03 00:07] LABS: BUN/CREATININE RATIO 29 (0-10)
[2021-10-03 07:24] LABS: HEMOGLOBIN 9.4 gm/dl (12.3-15.3); RED BLOOD COUNT 2.97 M/UL (4.00-5.10); WHITE BLOOD COUNT 5.1 K/UL (4.5-11.0)
[2021-10-03] MEDS ORDERED: DULCOLAX5 MG PO (10:25)
[2021-10-03] MEDS ORDERED: GUAIFENESIN400 MG PO (10:26)
[2021-10-03] MEDS ORDERED: ZOFRAN ODT 4 MG4 MG PO (10:33)
[2021-10-03] MEDS ORDERED: PYRIDIUM100 MG PO (10:35)
[2021-10-03] MEDS ORDERED: VOLTAREN ARTHRI20 GM TOP (13:03)
[2021-10-03] MEDS ORDERED: PROAIR HFA8.5 GM INH (14:48)
[2021-10-04 06:13] LABS: HEMOGLOBIN 8.4 gm/dl (12.3-15.3); RED BLOOD COUNT 2.7 M/UL (4.00-5.10); WHITE BLOOD COUNT 4.5 K/UL (4.5-11.0)
[2021-10-05 06:02] LABS: HEMOGLOBIN 8.6 gm/dl (12.3-15.3); RED BLOOD COUNT 2.78 M/UL (4.00-5.10); WHITE BLOOD COUNT 4.1 K/UL (4.5-11.0)
[2021-10-06 03:12] LABS: BUN/CREATININE RATIO 30 (0-10)
[2021-10-06 03:34] LABS: HEMOGLOBIN 9.5 gm/dl (12.3-15.3); RED BLOOD COUNT 3.06 M/UL (4.00-5.10); WHITE BLOOD COUNT 5.2 K/UL (4.5-11.0)
== END 2021-10-06 14:25 | DRG 291 ==
LOC: ER1 22:35 → CDU 10-03 05:17 → M/S 10-03 05:17
PROVIDERS: Internal Medicine; Student in an Organized Health Care Education/Training Program; ADMIT Internal Medicine
PROC: 3E0433Z Introduction of Anti-inflammatory into Central Vein, Percutaneous Approach (ICD-10-PCS; principal; 2021-10-02)
PROC: B24BZZZ Ultrasonography of Heart with Aorta (ICD-10-PCS; 2021-10-04)
DX: I13.0 Hypertensive heart and chronic kidney disease with heart failure and stage 1 through stage 4 chronic kidney disease, or unspecified chronic kidney disease (principal); I50.33 Acute on chronic diastolic (congestive) heart failure; E87.3 Alkalosis; N39.0 Urinary tract infection, site not specified; D61.818 Other pancytopenia; N17.9 Acute kidney failure, unspecified; J96.11 Chronic respiratory failure with hypoxia; I48.20 Chronic atrial fibrillation, unspecified; Z68.42 Body mass index [BMI] 45.0-49.9, adult; Z16.21 Resistance to vancomycin; Z16.12 Extended spectrum beta lactamase (ESBL) resistance; E83.42 Hypomagnesemia; M06.9 Rheumatoid arthritis, unspecified; E03.9 Hypothyroidism, unspecified; N18.30 Chronic kidney disease, stage 3 unspecified; E11.22 Type 2 diabetes mellitus with diabetic chronic kidney disease; I87.8 Other specified disorders of veins; K59.00 Constipation, unspecified; G47.33 Obstructive sleep apnea (adult) (pediatric); I27.20 Pulmonary hypertension, unspecified; E78.5 Hyperlipidemia, unspecified; G89.4 Chronic pain syndrome; M10.9 Gout, unspecified; I48.0 Paroxysmal atrial fibrillation; E66.01 Morbid (severe) obesity due to excess calories; Z96.653 Presence of artificial knee joint, bilateral; R53.81 Other malaise; D63.1 Anemia in chronic kidney disease; I08.1 Rheumatic disorders of both mitral and tricuspid valves; E87.5 Hyperkalemia; Z79.01 Long term (current) use of anticoagulants; Z74.01 Bed confinement status; Z87.19 Personal history of other diseases of the digestive system; Z87.440 Personal history of urinary (tract) infections; Z96.82 Presence of neurostimulator; Z90.710 Acquired absence of both cervix and uterus; Z98.890 Other specified postprocedural states; Z90.49 Acquired absence of other specified parts of digestive tract; Z88.1 Allergy status to other antibiotic agents; Z88.5 Allergy status to narcotic agent; Z88.8 Allergy status to other drugs, medicaments and biological substances; Z87.891 Personal history of nicotine dependence; Z82.3 Family history of stroke; Z80.0 Family history of malignant neoplasm of digestive organs
CPT/HCPCS: ECHO; 36415; 51702; 71045; 76706; 80048; 80053; 81001; 82550; 82553; 82607; 82746; 82962; 83540; 83550; 83605; 83735; 83880; 84100; 84484; 85025; 85027; 87040; 87086; 93005; 93306; 94640; 94664; 94760; 96374; 96375; 97161; 97167; 99285; J0692; J0696; J1100; J1756; J1940; U0002

== ENCOUNTER 2021-12-17 09:53 | Inpatient (IN) | payer MEDICARE, OTHER ==
[~2021-12-17] VITALS: Ht 177.8 cm; Wt 155.6 kg
[~2021-12-17 09:53] MED LIST changes: +GUAIFENESIN400 MG PO; +LEVEMIR100 UNIT/1 SQ; -NOVOLOG 10100 UNITS/ SC; +NOVOLOG 10100 UNITS/ SQ; +PYRIDIUM100 MG PO; +VOLTAREN ARTHRI20 GM TOP; -XALATAN OP SOL2.5 ML EYEBOTH; +XALATAN OP SOL2.5 ML OU
[2021-12-17 11:46] LABS: HEMOGLOBIN 9.5 gm/dl (12.3-15.3); RED BLOOD COUNT 2.95 M/UL (4.00-5.10); WHITE BLOOD COUNT 4.5 K/UL (4.5-11.0)
[2021-12-17] MEDS ORDERED: ELIQUIS5 MG PO (14:38)
[2021-12-17] MEDS ORDERED: MYCOSTATIN100000 UTS PO (14:46)
[2021-12-17] MEDS ORDERED: IPRAT-ALBUT 0.5-3 ML INH (14:47)
[2021-12-17] MEDS ORDERED: PROAIR HFA8.5 GM INH (14:47)
[2021-12-18 06:48] LABS: HEMOGLOBIN 9.5 gm/dl (12.3-15.3); RED BLOOD COUNT 2.95 M/UL (4.00-5.10); WHITE BLOOD COUNT 4.6 K/UL (4.5-11.0)
[2021-12-19 02:07] LABS: HEMOGLOBIN 9.3 gm/dl (12.3-15.3); RED BLOOD COUNT 2.91 M/UL (4.00-5.10); WHITE BLOOD COUNT 4.3 K/UL (4.5-11.0)
[2021-12-20 02:31] LABS: HEMOGLOBIN 9.6 gm/dl (12.3-15.3); RED BLOOD COUNT 3.01 M/UL (4.00-5.10); WHITE BLOOD COUNT 4.1 K/UL (4.5-11.0)
[2021-12-21 03:11] LABS: HEMOGLOBIN 9.3 gm/dl (12.3-15.3); RED BLOOD COUNT 2.93 M/UL (4.00-5.10); WHITE BLOOD COUNT 3.9 K/UL (4.5-11.0)
[2021-12-21] MEDS ORDERED: OMNICEF 300 MG300 MG PO (13:37)
[2021-12-22 03:16] LABS: HEMOGLOBIN 9.5 gm/dl (12.3-15.3); RED BLOOD COUNT 3.01 M/UL (4.00-5.10); WHITE BLOOD COUNT 4.2 K/UL (4.5-11.0)
[2021-12-22] MEDS ORDERED: CEFUROXIME500 MG PO (11:21)
== END 2021-12-22 16:44 | DRG 690 ==
LOC: ER1 09:53 → M/S 14:39 → CDU 14:39 → M/S 14:39
PROVIDERS: Internal Medicine; Physician Assistant; Physician Assistant Medical; ADMIT Internal Medicine
DX: N30.00 Acute cystitis without hematuria (principal); K76.6 Portal hypertension; Z20.822 Contact with and (suspected) exposure to COVID-19; E66.2 Morbid (severe) obesity with alveolar hypoventilation; Z16.21 Resistance to vancomycin; N17.9 Acute kidney failure, unspecified; D61.818 Other pancytopenia; I48.20 Chronic atrial fibrillation, unspecified; I13.0 Hypertensive heart and chronic kidney disease with heart failure and stage 1 through stage 4 chronic kidney disease, or unspecified chronic kidney disease; I50.32 Chronic diastolic (congestive) heart failure; Z68.41 Body mass index [BMI] 40.0-44.9, adult; B96.20 Unspecified Escherichia coli [E. coli] as the cause of diseases classified elsewhere; M19.012 Primary osteoarthritis, left shoulder; M19.011 Primary osteoarthritis, right shoulder; G89.4 Chronic pain syndrome; M10.9 Gout, unspecified; E11.22 Type 2 diabetes mellitus with diabetic chronic kidney disease; R53.81 Other malaise; L89.152 Pressure ulcer of sacral region, stage 2; E78.5 Hyperlipidemia, unspecified; K43.9 Ventral hernia without obstruction or gangrene; H40.89 Other specified glaucoma; R16.1 Splenomegaly, not elsewhere classified; I27.20 Pulmonary hypertension, unspecified; N18.30 Chronic kidney disease, stage 3 unspecified; E03.9 Hypothyroidism, unspecified; K74.60 Unspecified cirrhosis of liver; Z96.653 Presence of artificial knee joint, bilateral; M06.9 Rheumatoid arthritis, unspecified; I87.8 Other specified disorders of veins; Z87.440 Personal history of urinary (tract) infections; Z79.82 Long term (current) use of aspirin; Z79.4 Long term (current) use of insulin; Z74.01 Bed confinement status; Z79.01 Long term (current) use of anticoagulants; Z90.710 Acquired absence of both cervix and uterus; Z90.49 Acquired absence of other specified parts of digestive tract; Z88.1 Allergy status to other antibiotic agents; Z88.8 Allergy status to other drugs, medicaments and biological substances; Z80.0 Family history of malignant neoplasm of digestive organs; Z82.3 Family history of stroke
CPT/HCPCS: 0240U; 36415; 71045; 73030; 80048; 80053; 81001; 82962; 83605; 83735; 83880; 84100; 85025; 85027; 86140; 87040; 87077; 87086; 87186; 94640; 94760; 96374; 96375; 96376; 99284; G0378; J0696; J1335; U0002

== ENCOUNTER 2022-01-19 00:42 | Inpatient (IN) | payer MEDICARE, OTHER ==
[~2022-01-19] VITALS: Ht 177.8 cm; Wt 142.9 kg
[~2022-01-19 00:42] MED LIST changes: +ELIQUIS5 MG PO; -ZINC OXIDE57 GM TOP; +ZINC OXIDE60 GM TOP
[2022-01-19 02:11] LABS: HEMOGLOBIN 12.7 gm/dl (12.3-15.3); RED BLOOD COUNT 3.93 M/UL (4.00-5.10); WHITE BLOOD COUNT 11.2 K/UL (4.5-11.0)
[2022-01-19] MEDS ORDERED: AVEENO DAILY M TOP (13:51)
[2022-01-20 06:32] LABS: HEMOGLOBIN 11.7 gm/dl (12.3-15.3); RED BLOOD COUNT 3.7 M/UL (4.00-5.10); WHITE BLOOD COUNT 9.9 K/UL (4.5-11.0)
[2022-01-21 06:44] LABS: HEMOGLOBIN 12.1 gm/dl (12.3-15.3); RED BLOOD COUNT 3.76 M/UL (4.00-5.10)
[2022-01-21 06:46] LABS: WHITE BLOOD COUNT 7.4 K/UL (4.5-11.0)
[2022-01-22 06:25] LABS: HEMOGLOBIN 10.5 gm/dl (12.3-15.3); WHITE BLOOD COUNT 6.2 K/UL (4.5-11.0)
[2022-01-22 06:29] LABS: RED BLOOD COUNT 3.25 M/UL (4.00-5.10)
[2022-01-23] MEDS ORDERED: PROTONIX40 MG PO (12:26)
[2022-01-23] MEDS ORDERED: INVANZ 1 GM VIAL1 GM IV (12:35)
[2022-01-23] MEDS ORDERED: ZOFRAN 4 MG TAB4 MG PO (12:35)
[2022-01-23] MEDS ORDERED: COLACE100 MG PO (12:35)
[2022-01-23] MEDS ORDERED: FLONASE 0.05% N16 GM (13:34)
== END 2022-01-23 16:50 | DRG 394 ==
LOC: ER1 00:42 → CDU 06:10 → MED SURG 4 06:10
PROVIDERS: Internal Medicine; Student in an Organized Health Care Education/Training Program; ADMIT Internal Medicine
DX: K42.0 Umbilical hernia with obstruction, without gangrene (principal); E66.2 Morbid (severe) obesity with alveolar hypoventilation; I50.32 Chronic diastolic (congestive) heart failure; N39.0 Urinary tract infection, site not specified; N17.9 Acute kidney failure, unspecified; I48.20 Chronic atrial fibrillation, unspecified; Z68.42 Body mass index [BMI] 45.0-49.9, adult; E86.0 Dehydration; D50.9 Iron deficiency anemia, unspecified; E03.9 Hypothyroidism, unspecified; E78.5 Hyperlipidemia, unspecified; M10.9 Gout, unspecified; I87.2 Venous insufficiency (chronic) (peripheral); M06.9 Rheumatoid arthritis, unspecified; E11.40 Type 2 diabetes mellitus with diabetic neuropathy, unspecified; E87.6 Hypokalemia; I11.0 Hypertensive heart disease with heart failure; I27.21 Secondary pulmonary arterial hypertension; J44.9 Chronic obstructive pulmonary disease, unspecified; Z96.653 Presence of artificial knee joint, bilateral; G89.29 Other chronic pain; Z79.01 Long term (current) use of anticoagulants; Z98.890 Other specified postprocedural states; Z90.710 Acquired absence of both cervix and uterus; Z90.49 Acquired absence of other specified parts of digestive tract; Z82.3 Family history of stroke; Z80.0 Family history of malignant neoplasm of digestive organs; Z79.899 Other long term (current) drug therapy; Z74.01 Bed confinement status
CPT/HCPCS: 36415; 74019; 80048; 80053; 81001; 82550; 82553; 82962; 83690; 83735; 84100; 84439; 84443; 84484; 84550; 85025; 85027; 87086; 94640; 94664; 94760; 96361; 96374; 96375; 99285; C9113; J0696; J1335; J1650; J2270; J2405; J2550; Q9963; Q9967

== ENCOUNTER 2022-02-02 12:11 | Inpatient (IN) | payer MEDICARE, OTHER ==
[~2022-02-02] VITALS: Ht 177.8 cm; Wt 133.4 kg
[~2022-02-02 12:11] MED LIST changes: +AVEENO DAILY M TOP; -QUETIAPINE FUMA50 MG PO; -ROPINIROLE HCL4 MG PO; +ZOFRAN 4 MG TAB4 MG PO
[2022-02-02 12:59] LABS: HEMOGLOBIN 12.5 gm/dl (12.3-15.3); RED BLOOD COUNT 3.91 M/UL (4.00-5.10); WHITE BLOOD COUNT 11.9 K/UL (4.5-11.0)
[2022-02-02] MEDS ORDERED: QUETIAPINE FUMA50 MG PO (13:02)
[2022-02-02] MEDS ORDERED: ROPINIROLE HCL4 MG PO (13:11)
[2022-02-02 13:30] LABS: BUN/CREATININE RATIO 22 (0-10)
[2022-02-03 02:11] LABS: HEMOGLOBIN 13.1 gm/dl (12.3-15.3); RED BLOOD COUNT 4.2 M/UL (4.00-5.10)
[2022-02-03 02:13] LABS: WHITE BLOOD COUNT 8.9 K/UL (4.5-11.0)
[2022-02-04 02:25] LABS: HEMOGLOBIN 11.6 gm/dl (12.3-15.3)
[2022-02-04 02:26] LABS: RED BLOOD COUNT 3.64 M/UL (4.00-5.10); WHITE BLOOD COUNT 4.4 K/UL (4.5-11.0)
[2022-02-05 02:24] LABS: HEMOGLOBIN 10.7 gm/dl (12.3-15.3); RED BLOOD COUNT 3.34 M/UL (4.00-5.10); WHITE BLOOD COUNT 4.1 K/UL (4.5-11.0)
[2022-02-06 02:04] LABS: HEMOGLOBIN 10.8 gm/dl (12.3-15.3); RED BLOOD COUNT 3.4 M/UL (4.00-5.10); WHITE BLOOD COUNT 4.9 K/UL (4.5-11.0)
--- NOTE | 2022-02-06 12:42 | NUR ---
RECEIVED REPORT FROM KJ IN PCU ON PATIENT IN ROOM 6103. PATIENT ASSESSED ONCE ARRIVED TO THE UNIT. PATIENT HAS MOISTURE BETWEEN LEGS, AND SHEARING ON ENTIRE BUTT TOCK AREA. ALLEVYNS WERE REMOVED TO ALLOW AIR TO AREA, PILLOW PLACED UNDER L BUTT CHEEK TO RELIEVE PRESSURE. PATIENT REFUSED SCDS AND WAFFLE MATTRESS. EDUCATION PATIENT ON IMPORTANCE OF TURNING EVERY 2 HOURS WITH PILLOW PLACEMENT ON ALTERNATING SIDES. PATIENT AGREEABLE.
[2022-02-07 10:50] LABS: RED BLOOD COUNT 3.44 M/UL (4.00-5.10)
[2022-02-07 10:51] LABS: WHITE BLOOD COUNT 3.1 K/UL (4.5-11.0)
[2022-02-07 11:19] LABS: BUN/CREATININE RATIO 41 (0-10)
[2022-02-08 02:29] LABS: HEMOGLOBIN 10.5 gm/dl (12.3-15.3); RED BLOOD COUNT 3.28 M/UL (4.00-5.10)
[2022-02-08 02:30] LABS: WHITE BLOOD COUNT 4.9 K/UL (4.5-11.0)
[2022-02-08] MEDS ORDERED: LYRICA75 MG PO (09:53)
[2022-02-08] MEDS ORDERED: HYDROCODON-ACE1 EAC4 PO (09:53)
[2022-02-08] MEDS ORDERED: MEDROL DOSEPAK 24 MG PO (09:55)
== END 2022-02-08 17:41 | DRG 682 ==
LOC: ER1 12:11 → CDU 15:39 → M/S 15:39 → PROG CARE 18:05 → M/S 02-06 11:40
PROVIDERS: Internal Medicine; Internal Medicine Nephrology; Physician Assistant; ADMIT Internal Medicine
PROC: 5A09357 Assistance with Respiratory Ventilation, Less than 24 Consecutive Hours, Continuous Positive Airway Pressure (ICD-10-PCS; principal; 2022-02-02)
PROC: 5A09357 Assistance with Respiratory Ventilation, Less than 24 Consecutive Hours, Continuous Positive Airway Pressure (ICD-10-PCS; 2022-02-04)
PROC: 5A09357 Assistance with Respiratory Ventilation, Less than 24 Consecutive Hours, Continuous Positive Airway Pressure (ICD-10-PCS; 2022-02-05)
PROC: 5A09357 Assistance with Respiratory Ventilation, Less than 24 Consecutive Hours, Continuous Positive Airway Pressure (ICD-10-PCS; 2022-02-06)
PROC: 5A09357 Assistance with Respiratory Ventilation, Less than 24 Consecutive Hours, Continuous Positive Airway Pressure (ICD-10-PCS; 2022-02-07)
DX: N17.9 Acute kidney failure, unspecified (principal); G92.8 Other toxic encephalopathy; J96.21 Acute and chronic respiratory failure with hypoxia; J96.22 Acute and chronic respiratory failure with hypercapnia; J44.1 Chronic obstructive pulmonary disease with (acute) exacerbation; E66.2 Morbid (severe) obesity with alveolar hypoventilation; I13.0 Hypertensive heart and chronic kidney disease with heart failure and stage 1 through stage 4 chronic kidney disease, or unspecified chronic kidney disease; I50.32 Chronic diastolic (congestive) heart failure; F11.20 Opioid dependence, uncomplicated; Z68.41 Body mass index [BMI] 40.0-44.9, adult; G25.81 Restless legs syndrome; I27.20 Pulmonary hypertension, unspecified; M06.9 Rheumatoid arthritis, unspecified; E87.5 Hyperkalemia; G89.29 Other chronic pain; N18.30 Chronic kidney disease, stage 3 unspecified; I87.2 Venous insufficiency (chronic) (peripheral); E11.22 Type 2 diabetes mellitus with diabetic chronic kidney disease; R30.0 Dysuria; E78.5 Hyperlipidemia, unspecified; K59.00 Constipation, unspecified; Z96.653 Presence of artificial knee joint, bilateral; I48.0 Paroxysmal atrial fibrillation; E03.9 Hypothyroidism, unspecified; Z79.01 Long term (current) use of anticoagulants; Z79.899 Other long term (current) drug therapy; Z90.49 Acquired absence of other specified parts of digestive tract; Z98.890 Other specified postprocedural states; Z88.5 Allergy status to narcotic agent; Z88.8 Allergy status to other drugs, medicaments and biological substances; Z80.0 Family history of malignant neoplasm of digestive organs
CPT/HCPCS: 36415; 36600; 51702; 71045; 74018; 80048; 80053; 81001; 82550; 82553; 82803; 82962; 83605; 83690; 83735; 83880; 84132; 84484; 85025; 85027; 87086; 92526; 92610; 93005; 94640; 94660; 94760; 99285; J1335; J2920; J2930

== ENCOUNTER 2022-04-15 02:36 | Inpatient (IN) | payer MEDICARE, OTHER ==
[~2022-04-15] VITALS: Ht 170.2 cm; Wt 143.0 kg
[~2022-04-15 02:36] MED LIST changes: +QUETIAPINE FUMA50 MG PO; +ROPINIROLE HCL4 MG PO; -VOLTAREN ARTHRI20 GM TOP; +VOLTAREN ARTHRI20 GM TP
[2022-04-15 03:31] LABS: HEMOGLOBIN 10.7 gm/dl (12.3-15.3); RED BLOOD COUNT 3.21 M/UL (4.00-5.10); WHITE BLOOD COUNT 6.6 K/UL (4.5-11.0)
[2022-04-15 03:50] LABS: BUN/CREATININE RATIO 22 (0-10)
[2022-04-15] MEDS ORDERED: BASAGLAR K100 UNIT/1 SQ (13:18)
[2022-04-15] MEDS ORDERED: FLEET ENEMA133 ML PR (13:21)
[2022-04-15] MEDS ORDERED: HYDROCODON-ACE1 EAC4 PO (13:23)
[2022-04-15] MEDS ORDERED: NYSTATIN60 GM TOP (13:26)
[2022-04-15] MEDS ORDERED: ONDANSETRON ODT4 MG PO (13:27)
[2022-04-15] MEDS ORDERED: PREGABALIN75 MG PO (13:29)
[2022-04-16 03:20] LABS: HEMOGLOBIN 9.2 gm/dl (12.3-15.3); RED BLOOD COUNT 2.82 M/UL (4.00-5.10); WHITE BLOOD COUNT 4.6 K/UL (4.5-11.0)
[2022-04-17 02:06] LABS: HEMOGLOBIN 9.2 gm/dl (12.3-15.3); RED BLOOD COUNT 2.82 M/UL (4.00-5.10)
[2022-04-18 02:05] LABS: HEMOGLOBIN 9.3 gm/dl (12.3-15.3); RED BLOOD COUNT 2.84 M/UL (4.00-5.10); WHITE BLOOD COUNT 3.6 K/UL (4.5-11.0)
[2022-04-19 02:00] LABS: RED BLOOD COUNT 2.74 M/UL (4.00-5.10); WHITE BLOOD COUNT 3.5 K/UL (4.5-11.0)
[2022-04-20 06:49] LABS: HEMOGLOBIN 9.2 gm/dl (12.3-15.3); RED BLOOD COUNT 2.79 M/UL (4.00-5.10); WHITE BLOOD COUNT 3.2 K/UL (4.5-11.0)
--- NOTE | 2022-04-21 07:34 | NUR ---
NURSE NOTES COARSE CRACKLES AND RHONCHI IN SHIFT ASSESSMENT THIS MORNING. DOCTOR WILL BE NOTIFIED OF THIS STATUS CHANGE
[2022-04-21 07:54] LABS: HEMOGLOBIN 9.5 gm/dl (12.3-15.3); RED BLOOD COUNT 2.93 M/UL (4.00-5.10)
[2022-04-21 07:56] LABS: WHITE BLOOD COUNT 4.2 K/UL (4.5-11.0)
--- NOTE | 2022-04-21 13:56 | NUR ---
PATIENT LUNG SOUNDS SHOWING IMPROVEMENT AT THIS TIME. PATIENT DENIES CURRENT SOA, O2 SATURATION READS 98% ON 2L/NC
[2022-04-22 07:37] LABS: RED BLOOD COUNT 3.16 M/UL (4.00-5.10); WHITE BLOOD COUNT 4.2 K/UL (4.5-11.0)
[2022-04-22] MEDS ORDERED: JARDIANCE25 MG PO (11:32)
[2022-04-22] MEDS ORDERED: LASIX40 MG PO (11:32)
[2022-04-22] MEDS ORDERED: PROAIR HFA8.5 GM INH (11:32)
== END 2022-04-22 18:10 | DRG 871 ==
LOC: ER1 02:36 → MED SURG 4 05:29 → CCU 05:29 → CDU 05:29 → PROG CARE 05:29 → CCU 08:36 → PROG CARE 17:44 → MED SURG 4 04-19 17:51
PROVIDERS: Emergency Medicine; Internal Medicine; ADMIT Family Medicine
PROC: 3E03329 Introduction of Other Anti-infective into Peripheral Vein, Percutaneous Approach (ICD-10-PCS; principal; 2022-04-15)
PROC: 3E043XZ Introduction of Vasopressor into Central Vein, Percutaneous Approach (ICD-10-PCS; 2022-04-15)
DX: A41.59 Other Gram-negative sepsis (principal); G93.41 Metabolic encephalopathy; I50.33 Acute on chronic diastolic (congestive) heart failure; J96.21 Acute and chronic respiratory failure with hypoxia; R65.21 Severe sepsis with septic shock; J96.22 Acute and chronic respiratory failure with hypercapnia; I48.20 Chronic atrial fibrillation, unspecified; N30.00 Acute cystitis without hematuria; E03.9 Hypothyroidism, unspecified; E66.01 Morbid (severe) obesity due to excess calories; F41.1 Generalized anxiety disorder; G25.81 Restless legs syndrome; F32.9 Major depressive disorder, single episode, unspecified; R13.11 Dysphagia, oral phase; N18.30 Chronic kidney disease, stage 3 unspecified; K21.9 Gastro-esophageal reflux disease without esophagitis; M06.9 Rheumatoid arthritis, unspecified; E78.5 Hyperlipidemia, unspecified; E55.9 Vitamin D deficiency, unspecified; E11.22 Type 2 diabetes mellitus with diabetic chronic kidney disease; J20.9 Acute bronchitis, unspecified; R53.81 Other malaise; I27.20 Pulmonary hypertension, unspecified; E53.8 Deficiency of other specified B group vitamins; J44.9 Chronic obstructive pulmonary disease, unspecified; I48.0 Paroxysmal atrial fibrillation; K59.00 Constipation, unspecified; Z87.440 Personal history of urinary (tract) infections; Z79.01 Long term (current) use of anticoagulants; Z87.19 Personal history of other diseases of the digestive system; Z79.4 Long term (current) use of insulin; Z88.6 Allergy status to analgesic agent; Z88.8 Allergy status to other drugs, medicaments and biological substances; Z87.891 Personal history of nicotine dependence; Z88.1 Allergy status to other antibiotic agents; Z88.5 Allergy status to narcotic agent; Z88.2 Allergy status to sulfonamides
CPT/HCPCS: 36415; 36600; 71045; 80048; 80053; 81001; 82550; 82553; 82803; 82962; 83036; 83605; 83735; 83880; 84100; 84484; 85025; 85027; 86140; 87040; 87077; 87086; 87186; 92526; 92610; 93005; 94640; 94664; 94760; 96361; 96365; 96375; 99285; A6212; J0696; J1335; J1885; J1940; J2185; J3475; U0002